=== PATIENT | male | born 1990 | race Caucasian/White ===

== ENCOUNTER 2022-12-25 22:31 | Emergency (ER) | payer BC ==
[2022-12-25] MEDS ORDERED: Ondansetron 4 MG/2 ML SDV ONE (23:18)
[2022-12-25] MEDS ORDERED: HYDROmorphone 0.5 MG/0.5 ML Syringe ONE (23:19)
[2022-12-25] MEDS ORDERED: Sodium Chloride 0.9% 1,000 ML ONE (23:20)
[2022-12-25 23:24] LABS: BASOPHILS ABSOLUTE AUTO 0.01 K/mm3 (0.01-0.08); BASOPHILS PERCENT AUTO 0.2 % (0.1-1.2); EOSINOPHILS ABSOLUTE AUTO 0.24 K/mm3 (0.04-0.54); HEMOGLOBIN 12.2 gm/dl (13.7-17.5); IMMATURE GRAN ABSOLUTE AUTO 0.01 K/mm3 (0.00-0.10); IMMATURE GRAN PERCENT AUTO 0.2 % (<=1.0); LYMPHOCYTES ABSOLUTE AUTO 1.34 K/mm3 (1.32-3.57); LYMPHOCYTES PERCENT AUTO 22.1 % (21.8-53.1); MEAN CORPUSCULAR HEMOGLOBIN 31.4 pg (25.7-32.2); MEAN CORPUSCULAR VOLUME 95.4 fl (79.0-92.2); MEAN PLATELET VOLUME 9.4 fl (9.4-12.3); MONOCYTES ABSOLUTE AUTO 0.51 K/mm3 (0.30-0.82); MONOCYTES PERCENT AUTO 8.4 % (5.3-12.2); NEUTROPHILS ABSOLUTE AUTO 3.96 K/mm3 (1.78-5.38); NEUTROPHILS PERCENT AUTO 65.1 % (34.0-67.9); PLATELET COUNT,PLT 173 K/mm3 (163-337); RED BLOOD CELL COUNT 3.88 M/mm3 (4.63-6.08); WHITE BLOOD CELL COUNT,WBC 6.07 K/mm3 (4.23-9.07)
[2022-12-25 23:46] LABS: A/G RATIO 0.8 (1-2); ALBUMIN 3.8 g/dl (3.4-5.0); BILIRUBIN TOTAL 0.4 mg/dL (0.2-1.0); BUN/CREATININE RATIO 14.2 (14-18); CALCIUM 9.5 mg/dL (8.5-10.1); CREATININE 1.2 mg/dL (0.7-1.3); EST CRCL DRUG DOSING (CG) 105.63 mL/min; PROTEIN TOTAL,TP 8.8 g/dl (6.4-8.2)
[2022-12-25 23:51] LABS: INR 1.05; PROTHROMBIN TIME 11.2 SECONDS (9.7-12.0)
[2022-12-25 23:52] LABS: PTT,PARTIAL THROMBOPLSTIN TIME 28.9 SECONDS (21.7-31.4)
[2022-12-25] MEDS ORDERED: Ondansetron 4 MG/2 ML SDV IVPUSH ONE (23:53)
[2022-12-25] MEDS ORDERED: HYDROmorphone 0.5 MG/0.5 ML Syringe IVPUSH ONE (23:54)
[2022-12-26] MEDS ORDERED: HYDROmorphone 0.5 MG/0.5 ML Syringe IVPUSH ONE ×3 (01:10→06:57)
[2022-12-26] MEDS ORDERED: Ondansetron 4 MG/2 ML SDV ONE (03:22)
[2022-12-26] MEDS ORDERED: Ondansetron 4 MG/2 ML SDV IVPUSH ONE ×2 (04:00→04:03)
[2022-12-26] MEDS ORDERED: Sodium Chloride 0.9% 1,000 ML IV SCH (04:30)
[2022-12-26] MEDS ORDERED: Acetaminophen/oxyCODONE 325-5 MG Tab PO ONE (06:57)
[2022-12-26] MEDS ORDERED: Promethazine 25 MG/ML SDV IM PRN (07:20)
[2022-12-26] MEDS ORDERED: Ketorolac 30 MG/ML SDV IVPUSH ONE (09:40)
[2022-12-26] MEDS ORDERED: Morphine 4 MG/ML Syringe IVPUSH ONE (09:40)
[2022-12-26] MEDS ORDERED: Gadoxetate Disodium 10 ML SDV IV ONE (11:35)
[2022-12-26] MEDS ORDERED: Sodium Chloride 0.9% 10 ML Syringe FLUSH SCH (11:45)
== END 2022-12-26 14:18 | disposition home or self-care (01) ==
LOC: JD.ED 22:31
DX: G89.18 Other acute postprocedural pain (principal); R10.11 Right upper quadrant pain; Z91.041 Radiographic dye allergy status; Z98.890 Other specified postprocedural states
CPT/HCPCS: 36415; 71250; 74176; 74183; 80053; 83605; 83690; 85025; 85610; 85652; 85730; 86140; 87040; 93005; 96372; 96374; 96375; 96376; 99284; A9581; J1170; J1642; J1885; J2270; J2405; J2550; J3490; J7030; 93010